=== PATIENT | female | born 1970 | race African-American/Black ===

== ENCOUNTER 2020-07-29 07:23 | Emergency (ER) | payer BC ==
[2020-07-29 07:46] VITALS: BP 155/96; PULSE 87; TEMP 98.1; BMI 36.5
--- NOTE | 2020-07-29 08:34 | PDOC ---
History of Present Illness - General Chief Complaint: Palpitations Stated Complaint: PALPITATIONS Time Seen by Provider: 07/29/20 08:15 - History of Present Illness Initial Comments: 07/29/20 08:27 50F PMH lifestyle controlled HTN presenting for evaluation of 2 days of episodic palpitations lasting minutes. Endorses approximately 3 episodes yesterday w/o lightheadedness, dizziness, weakness, chest pain, sob, n/v, diaphoresis. Palpitations have random onset and resolution. Endorses episodic left arm pain not concurrent with palpitations. This morning patient experienced a dull substernal nonradiating chest pain lasting a few minutes, has since resolved. Currently asymptomatic. No FHX ACS. Denies tobacco use. 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 Past History - Medical History Allergies/Adverse Reactions: Allergies Allergy/AdvReac Type Severity Reaction Status Date / Time No Known Allergies Allergy Verified 07/29/20 07:46 Home Medications: Ambulatory Orders NK [No Known Home Medication] 01/09/18 COPD: No - Reproductive History Is Patient Now?: No - Psycho-Social/Smoking History Smoking History: Never smoked Have you smoked in the past 12 months: No - Substance Abuse Hx (Audit-C & DAST Scrn) How often the patient has a drink containing alcohol: Never Score: In Men: 4 or > Positive; In Women: 3 or > Positive: 0 Screen Result (Pos requires Nsg. Audit-10AR): Negative Review of Systems - Review of Systems Comments:: 08/04/20 05:25 CONSTITUTIONAL: Denies F / C HEENT: Denies headache, lightheadedness, dizziness, changes in vision / hearing, diplopia, blurry vision, sore throat, rhinorrhea RESP: Denies SOB, cough CARD: + palpitations and chest pain over the last 2 days GI: Denies N / V / D, abdominal pain, bloody stool, inability to tolerate PO : Denies dysuria, hematuria, frequency NEURO: Denies numbness, tingling, weakness MSK: + left arm pain, episodic SKIN: Denies rashes *Physical Exam - Vital Signs Last Vital Signs Temp Pulse Resp BP Pulse Ox 98.1 F 87 18 155/96 99 07/29/20 07:43 07/29/20 07:43 07/29/20 07:43 07/29/20 07:43 07/29/20 07:46 - Physical Exam 08/04/20 05:26 GEN: Well appearing, NAD, comfortable. AAOx3. HEENT: NC/AT, EOMI, PERRL, CN II-XII grossly intact. No facial asymmetry. Normal voice. Supple neck w/ FROM. CV: S1/S2, RRR, no m/r/g LUNG: CTAB, no wheezes, crackles, rales, rhonchi. GI: Soft, ndnt, +BS, no guarding, no rebound MSK: No obvious deformities of all extremities. SKIN: Warm, dry, no rashes appreciated. PSYCH: Normal mood and affect. NEURO: Moving all extremities well. Symmetric sensation. Normal gait. ED Treatment Course - LABORATORY CBC & Chemistry Diagram: 07/29/20 06:30 07/29/20 06:30 - RADIOLOGY Radiology Studies Ordered: Category Date Time Status CHEST PA & LAT [RAD] Stat Radiology 07/29/20 08:27 Ordered Medical Decision Making - Medical Decision Making 08/04/20 05:26 50F for eval of episodic palpitations; had an episode of nonradiating substernal chest pain this AM. Consider pAF. Less likely but will consider ACS, CHF, hyperthyroidism. 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 - likely dispo home with cardiology referral if 2 troponins negative since patient currently asymptomatic 07/29/20 09:13 CXR image and report reviewed EKG 0758 HR 71 sinus rhythm, axis and intervals wnl, no TWI, no SAMUEL/D 07/29/20 09:47 labs reviewed and reassuring repeat 2nd trop Wells score of 0; Low risk for VTE patient informed of plan and expected timeline; currently doing well and w/o sx 07/29/20 18:00 Pt was discharged home after no sx and 2 neg trop Discharge - Discharge Information Problems reviewed: Yes Clinical Impression/Diagnosis: Palpitations Condition: Stable Disposition: HOME - Admission No - Follow up/Referral Referrals: Carlito Blum MD [Primary Care Provider] - Farhat Lemus MD [Staff Physician] - - Patient Discharge Instructions Patient Printed Discharge Instructions: DI for Palpitations Additional Instructions: Follow up with Cardiology in the next 14 days. We have referred you to Dr. Lemus, call the number below tomorrow to schedule an appointment. Follow up with your Primary Care Doctor in the next 10 days regarding the symptoms you have been experiencing. Return to the nearest Emergency Department if you experience new or worsening symptoms, including but not limited to: - chest pain, shortness of breath - lightheadedness, dizziness, loss of consciousness - anything that concerns you - Post Discharge Activity
[2020-07-29 08:47] LABS: BASO % 0.5 % (0-2.0); EOS % 0.7 % (0-4.5); HEMATOCRIT 40.3 % (32.4-45.2); HEMOGLOBIN 13.4 GM/dL (10.7-15.3); LYMPH % 51.5 % (8-40); MCHC 33.2 g/dl (32.0-36.0); MEAN CELL VOLUME 81.3 fl (80-96); MEAN PLT VOLUME 7.1 fl (7.5-11.1); MONO % 7.6 % (3.8-10.2); NEUT % 39.7 % (42.8-82.8); PLATELET COUNT 241 K/MM3 (134-434); RBC 4.96 M/mm3 (3.60-5.2); RDW 15.3 % (11.6-15.6); WHITE BLOOD COUNT 4.6 K/mm3 (4.0-10.0)
[2020-07-29 09:37] LABS: ALBUMIN 3.5 g/dl (3.4-5.0); ALK PHOS 80 U/L (45-117); ANION GAP 6 MMOL/L (8-16); BILIRUBIN,TOTAL 0.3 mg/dL (0.2-1); CALCIUM 8.9 mg/dL (8.5-10.1); CHLORIDE 106 mmol/L (98-107); CO2 29 mmol/L (21-32); CREATININE 0.8 mg/dL (0.55-1.3); GLUCOSE,RANDOM 110 mg/dL (74-106); POTASSIUM 3.7 mmol/L (3.5-5.1); SGOT/AST 6 U/L (15-37); SGPT/ALT 26 U/L (13-61); SODIUM 141 mmol/L (136-145); TOT PROT 8.5 g/dl (6.4-8.2)
--- NOTE | 2020-07-29 09:44 | PDOC ---
Documentation entered by Piedad Valdes SCRIBE, acting as scribe for Rome Jean MD. Rome Jean MD: This documentation has been prepared by the maoibeLucio Ana, SCRIBE, under my direction and personally reviewed by me in its entirety. I confirm that the documentation accurately reflects all work, treatment, procedures, and medical decision making performed by me. Attending Attestation - Resident Resident Name: KvngRico - ED Attending Attestation I have performed the following: I have examined & evaluated the patient, The case was reviewed & discussed with the resident, I agree w/resident's findings & plan, Exceptions are as noted - HPI HPI: 07/29/20 09:25 Patient is a 50 year old female with a significant past medical history of hypertension who presents to the ED with palpitations x2 days. Patient stated her palpitations are random, episodic, and only last for a few minutes. Patient denies: Allergies: NKDA - Physicial Exam PE: 07/29/20 09:30 Vitals: Triage vital signs reviewed General Appearance: No acute distress, well nourished, well developed Cardiac: Regular rate and rhythm, no murmurs, no rubs, no gallops Lungs: Clear to auscultation bilateral, good air movement bilaterally Abdomen: Soft, nondistended, normal bowel sounds, nontender to palpation Extremities: Full range of motion to all extremities, no cyanosis, clubbing, or edema Skin: Warm and dry, no rashes or lesions, no rash, no petechiae Psych: Normal mood, normal affect - Medical Decision Making 07/29/20 09:43 Well-appearing no apparent distress presents to the emergency department with atypical chest discomfort episode of palpitation this morning Nonischemic EKG no ST elevations no T wave inversions Troponin negative TSH negative no DVT PE risk factors negative by Wells criteria We will check second troponin and reassess. HEART SCORE 1 Trop neg x 2. Low suspicion acs pe. Will discharge with close follow-up and very strict return instructions Findings, the need for follow-up and strict return instructions discussed with patient. Heart Score/ECG Review - History History: Slightly suspicious - Electrocardiogram EKG: Normal - Age Age: 45-65 - Risk Factors Based on the list above the patient has:: No risk factors known - Troponin Troponin: </= normal limit - Score Heart Score - Total: 1 Discharge - Discharge Information Problems reviewed: Yes Clinical Impression/Diagnosis: Palpitations Condition: Stable Disposition: HOME - Follow up/Referral Referrals: Carlito Blum MD [Primary Care Provider] - Farhat Lemus MD [Staff Physician] - - Patient Discharge Instructions Patient Printed Discharge Instructions: DI for Palpitations Additional Instructions: Follow up with Cardiology in the next 14 days. We have referred you to Dr. Lemus, call the number below tomorrow to schedule an appointment. Follow up with your Primary Care Doctor in the next 10 days regarding the symptoms you have been experiencing. Return to the nearest Emergency Department if you experience new or worsening symptoms, including but not limited to: - chest pain, shortness of breath - lightheadedness, dizziness, loss of consciousness - anything that concerns you - Post Discharge Activity
--- NOTE | 2020-07-30 10:56 | EKG ---
Test Reason : Blood Pressure : / mmHG Vent. Rate : 071 BPM Atrial Rate : 071 BPM P-R Int : 184 ms QRS Dur : 096 ms QT Int : 402 ms P-R-T Axes : 053 -11 048 degrees QTc Int : 436 ms NORMAL SINUS RHYTHM NORMAL ECG NO PREVIOUS ECGS AVAILABLE Confirmed by FRANKLIN BERG MD ([id number]) on 07/30/2020 10:56:34 AM Referred By: Confirmed By:FRANKLIN BERG MD
== END 2020-07-29 12:25 | disposition home or self-care (01) ==
LOC: JER 07:23
DX: R00.2 Palpitations (principal)
CPT/HCPCS: 36415; 71046-TC-FY; 80053; 82550; 84443; 84484; 85025; 93005; 93010; 99285-25

== ENCOUNTER 2024-08-20 13:48 | Emergency (ER) | payer BC, OTHER ==
[2024-08-20 13:59] VITALS: BP 139/88; PULSE 85; RESP 18; TEMP 98.7; BMI 35.9
== END 2024-08-20 16:12 | disposition home or self-care (01) ==
LOC: JER 13:48
DX: K64.4 Residual hemorrhoidal skin tags (principal)
CPT/HCPCS: 99283-25

== ENCOUNTER 2025-04-21 06:43 | Day surgery (SDC) | payer BC ==
[2025-04-13 12:14] VITALS: BMI 36.6
[2025-04-21 10:14] VITALS: TEMP 98
[2025-04-21 10:41] VITALS: BP 117/71; PULSE 68; RESP 16
== END 2025-04-21 11:30 | disposition home or self-care (01) ==
LOC: JASU-ENDO 06:43
PROVIDERS: ATTEND Internal Medicine Gastroenterology
PROC: 0DJD8ZZ Inspection of Lower Intestinal Tract, Via Natural or Artificial Opening Endoscopic (ICD-10-PCS; principal; 2025-04-21 10:00)
DX: Z12.11 Encounter for screening for malignant neoplasm of colon (principal); K64.8 Other hemorrhoids; K92.1 Melena